=== PATIENT | male | born 1985 | race Caucasian/White ===

== ENCOUNTER 2024-03-07 06:32 | Outpatient (CLI) | payer BC, SELFPAY ==
--- OUTSIDE RECORDS SUMMARY | 2024-03-07 06:35 | XMS_ITS | Clinical Summary ---
Author Organization [facility] Address [address] [place] [address]. [place] [address] Care Team Providers Care Chemical Waste Management Technician Name Role Phone Clinic - [place] Primary Ca re Provider Allergies Active Allergy Reactions Criticality Noted Date Comments No Known Drug Allergy 04/29/2004 Medications Medication Sig Dispensed Refills Start Date End Date Status valACYclovir (VALTREX) 500 MG tablet Take 500 mg by mouth 2 times daily as needed Active acetaminophen (TYLENOL) 500 MG tablet Take 500-1,000 mg by mouth every 6 hours as needed for mild pain Active ibuprofen (ADVIL/MOTRIN) 600 MG tablet Take 600 mg by mouth every 6 hours as needed for moderate pain Active naproxen sodium (ANAPROX) 220 MG tablet Take 220 mg by mouth 2 times daily as needed for moderate pain Active oxyCODONE (ROXICODONE) 5 MG tabletIndications:Ion tral hernia without obstruction or gangrene Take 1-2 tablets (5-10 mg) by mouth every 4 hours as needed for moderate to severe pain 20 tablet 10/14/2020 Active ondansetron (ZOFRAN-ODT) 4 MG ODT tabIndications:Ventra l hernia without obstruction or gangrene Take 1-2 tablets (4-8 mg) by mouth every 8 hours as needed for nausea 8 tablet 10/14/2020 Active Active Problems Problem Noted Date Diagnosed Date 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 Provider to review Tourette's disorder Immunizations Name Administration Dates Next Due Hepatitis A (ADULT 19+) 09/16/2010 MMR 02/06/2011 Meningococcal ACWY (Menactra??) 09/16/2010 Poliovirus, inactivated (IPV) 09/16/2010 TD,PF 7+ (Tenivac) 01/25/2006 TDAP (Adacel,Boostrix) 04/12/2012 Family History Medical History Relation Comments Lipids Father Prostate Cancer Father Alzheimer Disease Maternal Grandmother Glaucoma Maternal Grandmother Cancer Mother ovarian Cancer Paternal Grandfather stomach Cancer Paternal Grandmother systemic Neurologic Disorder Paternal Uncle 1 tourettes Neurologic Disorder Paternal Uncle 2 tourettes Relation Status Comments Father Alive Maternal Grandfather Maternal Grandmother Alive Mother Alive Paternal Grandfather Paternal Grandmother Paternal Uncle 1 Paternal Uncle 2 Social History Tobacco Use Types Packs/Day Years Used Date Smoking Tobacco: Some Days Cigarettes Smokeless Tobacco: Never Tobacco Cessation:Counseling Given: Yes Comments:1-2 cigarettes per day Alcohol Use Standard Drinks/Week Comments Not Currently 0 (1 standard drink = 0.6 oz pur e alcohol) sober 2011 PHQ-2 Answer Date Recorded PHQ-2 Total Score (Adult) - Positive if 3 or more points; Administer PHQ-9 if positive 2 10/11/2020 Adolescent Education Answer Date Record ed Getting School Help Needed Not on file 04/30 Sex and Gender Information Value Date Recorded Sex Assigned at Not on file Gender Identity Not on file Sexual Orientation Not on file Last Filed Vital Signs Vital Sign Reading Time Taken Comments Blood Pressure 120/78 10/14/2020 12:02 PM CDT Pulse 70 10/14/2020 12:02 PM CDT Temperature 36.4 ??C (97.5 ??F) 10/14/2020 12:02 PM C DT Respiratory Rate 15 10/14/2020 12:02 PM CDT Oxygen Saturation 96% 10/14/2020 12:02 PM CDT Inhaled Oxygen Concentration - - Weight 69.9 kg (154 lb 3.2 oz) 10/14/2020 6:26 A M CDT Height 181.6 cm (5' 11.5) 10/14/2020 6:26 AM CD T Body Mass Index 21.21 10/14/2020 6:26 AM CDT Plan of Treatment Not on file Medical Devices Implanted Type Area Enrollment Management Vice President Device Identifier Shelf Expiration Date Model / Serial / Lot Mesh Progrip Laparoscopic 5.9x3.9 Parietex Self-Fix [id number] Implanted:Qty: 1 on 10/14/2020 by Heriberto Goodman MD at [facility] Mesh Right: Inguinal COVIDIEN 04/21/2023 [id number] / / [id number] Mesh Ventralex Hernia 2.5 [place] Med W/Strap [id number] Implanted:Qty: 1 on 10/14/2020 by Heriberto Goodman MD at [facility] Mesh N/A: Abdomen CR [employer]-DAVOL 07/19/2022 [id number] / / [id number] Care Teams Chemical Waste Management Technician Relationship Specialty Start Date End Date Clinic - [facility] [address] [id number] PCP - General 10/14/20
--- OUTSIDE RECORDS SUMMARY | 2024-03-07 06:36 | XMS_ITS | Continuity of Care Document ---
Author Organization [facility] Address [address] [place] [address]. 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
--- OUTSIDE RECORDS SUMMARY | 2024-03-07 06:36 | XMS_ITS | Clinical Summary ---
Author Organization [facility] Address [place], [place] [address] Support Name Relationship Address Phone Ruth Cohen Emergency Contact [address] [place] [address] Care Team Providers Care Flooring Mechanic Name Role Phone Pranay Thorne MD Primary Care Provider Allergies No known active allergies Medications Medication Sig Dispensed Refills Start Date End Date Status naproxen (ALEVE) 220 mg tablet Take 220 mg by mouth. Not taking 10/24/23 Active medication order composer Cbd oil for sore muscles, pen for puffing on as well 0 03/16/2022 Active omeprazole 20 mg tablet Take 1 Tablet (20 mg) by mouth once daily before a meal. 90 Tablet 3 04/05/2022 Active polyethylene glycol-electrolyt e (GOLYTELY) 236-22.74-6.74 -5.86 gram suspensionIndicat ions:Encounter for screening colonoscopy Drink 2 liters (half the bottle) the day before colonoscopy and 2 liters (remaining prep) 6 hours prior to colonoscopy appointment. 4000 mL 10/04/2023 Discontinue d(*Med complete/Re gimen complete/Le juana of care change) Active Problems Problem Noted Date Diagnosed Date Epididymitis, left 01/22/2019 Encounters Date Type Department Care Team Description 02/20/2024 2:55 PM CDT Preop Visit [facility] [address] [place] [address] Pranay Thorne MD Preoperative Exam (DOS: 03/07/2024, EGD, Dr. Colmenares, [facility]) 02/20/2024 Travel 12/26/2023 Telephone [facility] [address] [place] [address] Daniel Colmenares MD from Last 3 Months Immunizations Name Administration Dates Next Due Hepatitis A (Adult) 09/16/2010 Inactivated Polio Vaccine 09/16/2010 Influenza, IIV4 04/05/2022,07/18/2019,05/19/2014 MMR 02/06/2011 Meningococcal Vaccine (Menactra) 09/16/2010 Td, Preservative Free (age >= 7 Years) 6 Tdap 03/16/2022,04/12/2012 Family History Medical History Relation Name Comments Cancer-prostate Father Hypertension Father Hypertension Mother Melanoma Mother Anesthesia Problem No Family History Cancer-colon No Family History Diabetes No Family History Heart attack No Family History Relation Name Status Comments Father Mother Social History Tobacco Use Types Packs/Day Years Used Date Smoking Tobacco: Former Smokeless Tobacco: Never Tobacco Cessation:Counseling Given: No Alcohol Use Standard Drinks/Week Comments Not Currently 0 (1 standard drink = 0.6 oz pur e alcohol) PHQ-2 Answer Date Recorded PHQ-2 TOTAL SCORE 0 09/19/2023 Social Connections Answer Date Recorded Frequency of Communication with Friends and Fami ly 0 02/20/2024 Financial Resource Strain Answer Date R ecorded Difficulty of Paying Living Expenses 3 02/20/2024 Difficulty of Paying Living Expenses Not on file 02/20/2024 Food Insecurity Answer Date Recorded Worried About Running Out of Food in the Last Ye ar 1 02/20/2024 Transportation Needs Answer Date Record ed Lack of Transportation (Medical) 1 02/20/2024 Housing Stability Answer Date Recorded Unable to Pay for Housing in the Last Year 1 02/20/2024 Sex and Gender Information Value Date Recorded Sex Assigned at Not on file Gender Identity Not on file Sexual Orientation Not on file Obstetrics History Last Filed Vital Signs Vital Sign Reading Time Taken Comments Blood Pressure 122/72 02/20/2024 2:49 PM CDT Pulse 76 02/20/2024 2:49 PM CDT Temperature 36.8 ??C (98.2 ??F) 09/19/2023 4:21 PM CS T Respiratory Rate 14 10/17/2023 9:50 AM CDT Oxygen Saturation 97% 02/20/2024 2:49 PM CDT Inhaled Oxygen Concentration - - Weight 82.2 kg (181 lb 3.2 oz) 02/20/2024 2:49 P M CDT Height 181.4 cm (5' 11.42) 02/20/2024 2:49 PM C DT Body Mass Index 24.98 02/20/2024 2:49 PM CDT Plan of Treatment Health Maintenance Due Date Last Done Comments HIV for age 15-65 1998 Hepatitis C screening for age 18-79 2001 COVID-19 vaccine series (2022- season) 2023 12/28/2020, 12/07/2020 Influenza for age 9-49 03/23/2024 , 07/18/2019, 05/19/2014 Depression screening for age 12+ 09/19/2024 09/20/2023, 09/19/2023, 03/16/2022, Additional history exists BMI (ht and wt on same day) for age 18+ 02/19/2025 02/20/2024, 10/03/2023, 09/19/2023, Additional history exists Lipids for age 35-44 03/16/2027 03/16/2022, 03/21/20 19 Tetanus booster 03/16/2032 03/16/2022, 03/24, 01/25/2006 Tdap Completed 03/16/2022, 04/12/2012 Pneumococcal series for age 6-64 Aged Out No longer eligible based on patient's age to complete this topic Medical Devices Implanted Type Area Certified Respiratory Therapist Device Identifier Shelf Expiration Date Model / Serial / Lot Mesh Inguinal Sm Perfix Plug - [id number] Implanted:Qty: 1 on 07/25/2016 by Richy Tavares MD at [facility] Left: Inguinal [employer] 11/17/2020 [id number] / / [id number] Procedures Procedure Name Priority Date/Time Associated Diagnosis Comments LIPID PANEL W REFLEX MEASURED LDL Routine 03/16/2022 2:39 PM CDT Routine general medical examination at a health care facility from Last 3 Months or Most Recently Relevant to Health Maintenance Results * LIPID PANEL W REFLEX MEASURED LDL (03/16/2022 2:39 PM CDT) CHOLESTEROL,TOTAL 176 100 - 199 mg/dL 03/17/2022 1:11 PM CDT [facility] TRIGLYCERIDES 107 <150 mg/dL 03/17/2022 1:11 PM CDT [facility] HDL CHOLESTEROL 47 >40 mg/dL 1:11 PM CDT [facility] NON-HDL CHOLESTEROL 129 <145 mg/dl 03/17/2022 1:11 PM CDT [facility] CHOL/HDL RATIO 3.74 <4.50 03/17/2022 1:11 PM CDT [facility] LDL CHOLESTEROL 108 <=130 mg/dL 03/17/2022 1:11 PM CDT [facility] VLDL CHOLESTEROL 21 <=30 mg/dL 03/17/2022 1:11 PM CDT [facility] PROVIDER ORDERED STATUS RANDOM 03/17/2022 1:11 PM CDT [facility] Blood BLOOD SPECIMEN / Unknown Venipuncture / Unknown 03/16/2022 2:39 PM CDT 03/16/2022 2:40 PM CDT Jaret Jara MD [facility] [address] [place] [address], from Last 3 Months or Most Recently Relevant to Health Maintenance Advance Directives * Full Code (Latest Code Status on File) Date Activated Date Inactivated Comments 07/25/2016 9:05 AM 07/25/2016 1:18 PM * Full Code Date Activated Date Inactivated Comments 07/25/2016 5:28 AM 07/25/2016 9:05 AM * Full Code Date Activated Date Inactivated Comments 07/22/2016 1:15 PM 07/25/2016 5:28 AM Care Teams Flooring Mechanic Relationship Specialty Start Date End Date Pranay Thorne MD [address] [facility] [place] [address] PCP - General Family Practice 07/02/19
--- OUTSIDE RECORDS SUMMARY | 2024-03-07 06:36 | XMS_ITS | Referral Summary ---
Author Organization [facility] Address [address] [place] [address]. [place] [address] Care Team Providers Care Tin Container Straightener Name Role Phone Clinic - [place], [facility] Primary Ca re Provider Allergies Active Allergy [...] Overview: Added automatically from request for surgery [id number] Umbilical hernia without obstruction and without gangrene 09/20/2020 Overview: Added automatically from request for surgery [id number] Herpes labialis 12/27/2015 CARDIOVASCULAR SCREENING; LDL GOAL [...] TD,PF 7+ (Tenivac) 01/25/2006 TDAP (Adacel,Boostrix) 04/12/2012 Social History Tobacco Use Types Packs/Day Years [...] on file Medical Devices Implanted Type Area Pilates Coordinator Device Identifier Shelf Expiration Date Model / Serial / Lot Mesh Progrip Laparoscopic 5.9x3.9 Parietex Self-Fix [id number] Implanted:Qty: 1 on 10/14/2020 by Heriberto Goodman MD at [facility] Mesh Right: Inguinal COVIDIEN 04/21/2023 [id number] / / [id number] Mesh Ventralex Hernia 2.5 [place] Med W/Strap [id number] Implanted:Qty: 1 on 10/14/2020 by Heriberto Goodman MD at [facility] Mesh N/A: Abdomen CR [employer]-DAVOL 07/19/2022 [id number] / / [id number] Care Teams Tin Container Straightener Relationship Specialty Start Date End Date Clinic - [facility] [address] [address] [place] [id number] PCP - General 10/14/20
--- NOTE | 2024-03-07 07:45 | W.ANESCHARGE ---
Anesthesia Charges Start Date/Time Anesthesia Start Date: 03/07/24 Anesthesia Start Time: 07:20 Stop Date/Time Anesthesia Stop Date: 03/07/24 Anesthesia Stop Time: 07:41
--- NOTE | 2024-03-07 10:24 | W.ANESCHARGE ---
Anesthesia Charges Start Date/Time Anesthesia Start Date: 03/07/24 Anesthesia Start Time: 07:20 Stop Date/Time Anesthesia Stop Date: 03/07/24 Anesthesia Stop Time: 07:41
== END 2024-03-07 06:33 | disposition home or self-care (01) ==
LOC: OP CLINIC 06:34
PROVIDERS: Visit Provider Internal Medicine Gastroenterology
DX: R13.10 Dysphagia, unspecified (principal); K44.9 Diaphragmatic hernia without obstruction or gangrene
CPT/HCPCS: 00731; 43239; 88305; J2704